=== PATIENT | female | born 1980 | race Two or more races ===

== ENCOUNTER 2017-12-02 09:33 | Emergency (ER) | payer MEDICAID, OTHER ==
[~2017-12-02] VITALS: Ht 157.5 cm; Wt 88.5 kg
[2017-12-02 10:03] LABS: Basophils # (auto) 0 uL; Basophils % (auto) 0.3 % (0.0-2.0); Eosinophils # (auto) 0.1 uL; Eosinophils % (auto) 1.8 % (0.0-7.0); Hematocrit 44.5 % (36.0-46.0); Hemoglobin 15.1 g/dL (12.2-16.2); Lymphocytes # (auto) 2.1 uL; Lymphocytes % (auto) 33.1 % (10.0-50.0); Mean Corpuscular Hemoglobin 30.5 pg (28.0-32.0); Mean Corpuscular Hgb Conc. 33.9 g/dL (32.0-36.0); Monocytes # (auto) 0.7 uL; Monocytes % (auto) 11.2 % (0.0-12.0); Neutrophils # (auto) 3.3 uL; Neutrophils % (auto) 53.6 % (37.0-80.0); Nucleated Red Blood Cells % 0.1 %; Platelet Count (auto) 253 10^3/uL (140-450); Red Blood Cells 4.95 10^6/uL (4.0-5.20); White Blood Cell 6.2 10^3/uL (4.4-10.8)
[2017-12-02 10:14] VITALS: BP 118/75
[2017-12-02] MEDS ORDERED: SODIUM CHLORIDE 0.9% 1,000 ML IV ONE ×2 (10:32)
[2017-12-02 10:42] LABS: Urine Bacteria FEW /hpf (None Seen); Urine Blood 2+ /uL (Negative); Urine Mucus FEW (None Seen); Urine Specific Gravity 1.025 (1.001-1.035); Urine WBC 2 /hpf (0 - 5)
[2017-12-02 10:43] LABS: Albumin 3.7 g/dL (3.4-5.0); BUN/Creatinine Ratio 12.7; Bilirubin, Total 0.5 mg/dL (0.2-1.0); Calcium 8.4 mg/dL (8.5-10.1); Potassium 3.6 mmol/L (3.5-5.1); Total Protein 8.1 g/dL (6.4-8.2)
[2017-12-02] MEDS ORDERED: ALUM & MAG HYDROX-SIMETH LIQ(MAALOX) 30 ML PO ONE (12:00)
[2017-12-02] MEDS ORDERED: LIDOCAINE VISCOUS 2% 15ML UD PO ONE (12:00)
[2017-12-02] MEDS ORDERED: DONNATAL 5ml ORAL Elix (BELLADONNA ALK-PHENOBARB) PO ONE (12:00)
== END 2017-12-02 16:50 | disposition home or self-care (01) ==
LOC: ER 09:33
DX: N39.0 Urinary tract infection, site not specified (principal); K29.70 Gastritis, unspecified, without bleeding
CPT/HCPCS: 36415; 80053; 81001; 85025; 94761; 96360

== ENCOUNTER 2019-04-22 12:20 | Emergency (ER) | payer SELFPAY ==
[~2019-04-22] VITALS: Ht 160 cm; Wt 86.6 kg
[~2019-04-22 12:20] MED LIST: LEVO500T21 PO; METR500T PO
[2019-04-22 12:46] LABS: Urine WBC None Seen /hpf (0 - 5)
[2019-04-22 13:27] LABS: Basophils # (auto) 0 uL; Basophils % (auto) 0.4 % (0.0-2.0); Eosinophils # (auto) 0.1 uL; Eosinophils % (auto) 1.5 % (0.0-7.0); Hematocrit 41.4 % (36.0-46.0); Lymphocytes # (auto) 2.8 uL; Lymphocytes % (auto) 38.4 % (10.0-50.0); Mean Corpuscular Hemoglobin 30.4 pg (28.0-32.0); Mean Corpuscular Hgb Conc. 33.7 g/dL (32.0-36.0); Monocytes # (auto) 0.6 uL; Neutrophils # (auto) 3.8 uL; Neutrophils % (auto) 51.7 % (37.0-80.0); Nucleated Red Blood Cells % 0.1 %; Platelet Count (auto) 244 10^3/uL (140-450); Red Cell Distribution Width 13.8 % (11.8-14.3); White Blood Cell 7.4 10^3/uL (4.4-10.8)
[2019-04-22 13:31] LABS: Urine Bacteria NONE SEEN /hpf (None Seen); Urine Blood TRACE /uL (Negative); Urine Specific Gravity 1.029 (1.001-1.035)
[2019-04-22 16:17] VITALS: BP 132/88
== END 2019-04-22 16:01 | disposition home or self-care (01) ==
LOC: ER 12:20
DX: R19.09 Other intra-abdominal and pelvic swelling, mass and lump (principal); Z90.49 Acquired absence of other specified parts of digestive tract
CPT/HCPCS: 36415; 76856; 81001; 84702; 85025

== ENCOUNTER 2019-10-29 16:30 | Observation (INO) | payer MEDICAID ==
[2019-10-29] MEDS ORDERED: PREN-153 OR (18:41)
== END 2019-10-29 18:03 | disposition home or self-care (01) | DRG 566 ==
LOC: LDRP 16:30
PROVIDERS: ADMIT Specialist; ATTEND Specialist
DX: O26.853 Spotting complicating pregnancy, third trimester (principal); O24.419 Gestational diabetes mellitus in pregnancy, unspecified control; Z3A.30 30 weeks gestation of pregnancy
CPT/HCPCS: 59025; 81002; 82948; 82962; G0378

== ENCOUNTER 2019-12-27 08:00 | Inpatient (IN) | payer MEDICAID ==
[~2019-12-27] VITALS: Ht 30.5 cm; Wt 0.5 kg
[2019-12-27] VITALS (16 sets, daily range): BP systolic 110–129; BP diastolic 57–73
[~2019-12-27 08:00] MED LIST changes: +PREN-153 OR
[2019-12-27 09:01] LABS: Basophils # (auto) 0 10 ^3/uL (0-0.2); Basophils % (auto) 0.2 % (0.0-2.0); Eosinophils # (auto) 0.1 10 ^3/uL (0-0.8); Eosinophils % (auto) 1.5 % (0.0-7.0); Hemoglobin 13.3 g/dL (12.2-16.2); Lymphocytes # (auto) 2.7 10 ^3/uL (0.4-5.4); Lymphocytes % (auto) 32.5 % (10.0-50.0); Mean Corpuscular Hemoglobin 32.3 pg (28.0-32.0); Mean Corpuscular Hgb Conc. 34.1 g/dL (32.0-36.0); Mean Corpuscular Volume 94.8 fL (80.0-100.0); Monocytes # (auto) 0.6 10 ^3/uL (0-1.3); Monocytes % (auto) 7.3 % (0.0-12.0); Neutrophils # (auto) 4.9 10 ^3/uL (1.6-8.6); Neutrophils % (auto) 58.5 % (37.0-80.0); Nucleated Red Blood Cells % 0.1 %; Platelet Count (auto) 231 10^3/uL (140-450); Red Blood Cells 4.11 10^6/uL (4.0-5.20); Red Cell Distribution Width 14.5 % (11.8-14.3); White Blood Cell 8.4 10^3/uL (4.4-10.8)
[2019-12-27 09:07] LABS: Urine Bacteria MANY /hpf (None Seen); Urine Blood 1+ /uL (Negative); Urine Mucus FEW (None Seen); Urine Specific Gravity 1.022 (1.001-1.035); Urine WBC 5 /hpf (0 - 5)
[2019-12-27 09:14] LABS: Albumin 2.6 g/dL (3.4-5.0); BUN/Creatinine Ratio 26.2; Calcium 8.1 mg/dL (8.5-10.1); Potassium 3.6 mmol/L (3.5-5.1)
[2019-12-27 09:17] LABS: Bilirubin, Total 0.3 mg/dL (0.2-1.0); INR 0.94 (0.9-1.15); Partial Thromboplastin Time 27.9 sec (23.64-32.05)
[2019-12-27] MEDS ORDERED: TETRACAINE 1% INJ 2 ML VIAL IJ ONE (11:48)
[2019-12-27] MEDS ORDERED: LACT. RINGERS/OXYTOCIN 20UNITS 1,000 ML IV SCH (12:03)
[2019-12-27] MEDS ORDERED: ceFAZolin 1GM VL ONE (12:06)
[2019-12-27] MEDS ORDERED: PHENYLEPHRINE HCL 10 MG/ML VL ONE (12:06)
[2019-12-27] MEDS ORDERED: ePHEDrine SULFATE 50 MG/ML AMP ONE (12:06)
[2019-12-27] MEDS ORDERED: MORPHINE SULF(PF) 0.5MG/ML 10ML VIAL ONE (12:06)
[2019-12-27] MEDS ORDERED: oxyTOCIN 10 UNIT/ML 10ML VIAL ONE (12:09)
[2019-12-27] MEDS ORDERED: ceFAZolin 1GM/50ML 50 ML IV SCH (12:15)
[2019-12-27] MEDS ORDERED: ONDANSETRON HCL 4 MG/2 ML VIAL IV PRN ×3 (12:15→13:45)
[2019-12-27] MEDS ORDERED: MORPHINE SULFATE 4 MG/ML SYR/VIAL IV PRN (12:15)
[2019-12-27] MEDS ORDERED: diphenhdrAMINE HCL 50 MG/1 ML VL IV PRN (13:45)
[2019-12-27] MEDS ORDERED: NALOXONE HCL 0.4 MG/ML VIAL IV PRN ×2 (13:45)
[2019-12-27] MEDS ORDERED: KETOROLAC TROMETH 30 MG/ML 1ML VIAL IV PRN (13:45)
[2019-12-27] MEDS ORDERED: ACCU-CHEK COMFORT CURVE STRIP VI ONE (13:45)
[2019-12-27] MEDS ORDERED: HYDROmorphone HCL 2 MG/ML VL IV PRN (13:45)
[2019-12-27 20:13] LABS: Basophils # (auto) 0 10 ^3/uL (0-0.2); Basophils % (auto) 0.3 % (0.0-2.0); Eosinophils # (auto) 0 10 ^3/uL (0-0.8); Eosinophils % (auto) 0.3 % (0.0-7.0); Hematocrit 38.3 % (36.0-46.0); Hemoglobin 12.9 g/dL (12.2-16.2); Lymphocytes % (auto) 9.3 % (10.0-50.0); Mean Corpuscular Hemoglobin 31.9 pg (28.0-32.0); Mean Corpuscular Hgb Conc. 33.6 g/dL (32.0-36.0); Mean Corpuscular Volume 94.8 fL (80.0-100.0); Monocytes # (auto) 0.7 10 ^3/uL (0-1.3); Monocytes % (auto) 6.8 % (0.0-12.0); Neutrophils # (auto) 8.5 10 ^3/uL (1.6-8.6); Neutrophils % (auto) 83.3 % (37.0-80.0); Platelet Count (auto) 215 10^3/uL (140-450); Red Blood Cells 4.04 10^6/uL (4.0-5.20); Red Cell Distribution Width 14.2 % (11.8-14.3); White Blood Cell 10.2 10^3/uL (4.4-10.8)
[2019-12-27] MEDS: LACTATED RINGER'S 1,000 ML IV SCH (20:25)
[2019-12-27] MEDS: ceFAZolin 1GM/50ML 50 ML IV SCH (20:26)
[2019-12-27] MEDS ORDERED: MORPHINE SULF INJ 2 MG/ML SYRINGE 1ML IV PRN (21:30)
[2019-12-28] VITALS (9 sets, daily range): BP systolic 98–127; BP diastolic 63–81
[2019-12-28] MEDS ORDERED: ACETAMINOPHEN IV 100 ML IV ONE (01:27)
[2019-12-28] MEDS: ceFAZolin 1GM/50ML 50 ML IV SCH ×2 (05:15→12:33)
[2019-12-28] MEDS: LACTATED RINGER'S 1,000 ML IV SCH ×2 (05:30→09:55)
[2019-12-28 07:09] LABS: Basophils # (auto) 0 10 ^3/uL (0-0.2); Eosinophils # (auto) 0.1 10 ^3/uL (0-0.8); Eosinophils % (auto) 1.2 % (0.0-7.0); Hematocrit 36.2 % (36.0-46.0); Hemoglobin 12.3 g/dL (12.2-16.2); Lymphocytes # (auto) 0.8 10 ^3/uL (0.4-5.4); Lymphocytes % (auto) 8.3 % (10.0-50.0); Mean Corpuscular Hemoglobin 32.3 pg (28.0-32.0); Mean Corpuscular Hgb Conc. 34.1 g/dL (32.0-36.0); Mean Corpuscular Volume 94.9 fL (80.0-100.0); Monocytes # (auto) 0.7 10 ^3/uL (0-1.3); Monocytes % (auto) 6.8 % (0.0-12.0); Neutrophils # (auto) 8.5 10 ^3/uL (1.6-8.6); Neutrophils % (auto) 83.7 % (37.0-80.0); Platelet Count (auto) 216 10^3/uL (140-450); Red Blood Cells 3.82 10^6/uL (4.0-5.20); Red Cell Distribution Width 14.5 % (11.8-14.3); White Blood Cell 10.2 10^3/uL (4.4-10.8)
[2019-12-28] MEDS ORDERED: HYDROcodone-ACET 5/325MG TAB PO PRN (09:00)
[2019-12-28] MEDS ORDERED: BISACODYL 10 MG RECT SUPP PR PRN (09:00)
[2019-12-28] MEDS: DOCUSATE CALCIUM 240 MG CAP PO SCH (10:58)
[2019-12-28] MEDS: DOCUSATE SOD 100 MG CAP PO SCH ×2 (10:58→22:28)
[2019-12-28] MEDS: HYDROcodone-ACET 5/325MG TAB PO PRN ×3 (11:01→20:59)
[2019-12-28] MEDS: SIMETHICONE 80 MG CHEWABLE TABLET PO SCH ×4 (12:00→22:28)
[2019-12-28] MEDS: IBUPROFEN 800 MG TAB PO PRN ×2 (13:55→22:28)
[2019-12-28] MEDS ORDERED: ACETAMINOPHEN IV 1000 MG/100ML (10MG/ML) IV PRN (21:15)
[2019-12-29] MEDS: HYDROcodone-ACET 5/325MG TAB PO PRN ×5 (03:13→21:13)
[2019-12-29 03:27] VITALS: BP 109/70
[2019-12-29] MEDS: SIMETHICONE 80 MG CHEWABLE TABLET PO SCH ×4 (05:32→21:16)
[2019-12-29] MEDS: IBUPROFEN 800 MG TAB PO PRN ×2 (06:37→18:46)
[2019-12-29 06:49] VITALS: BP 116/75
[2019-12-29] MEDS: DOCUSATE SOD 100 MG CAP PO SCH ×2 (08:24→21:16)
[2019-12-29] MEDS: DOCUSATE CALCIUM 240 MG CAP PO SCH (08:24)
[2019-12-29 11:20] VITALS: BP 128/74
[2019-12-29 15:13] VITALS: BP 119/74
[2019-12-29 18:45] VITALS: BP 119/73
[2019-12-29 23:00] VITALS: BP 114/79
[2019-12-30] MEDS: HYDROcodone-ACET 5/325MG TAB PO PRN ×2 (01:33→07:24)
[2019-12-30 03:00] VITALS: BP 118/66
[2019-12-30] MEDS: IBUPROFEN 800 MG TAB PO PRN (05:26)
[2019-12-30] MEDS: SIMETHICONE 80 MG CHEWABLE TABLET PO SCH (06:00)
[2019-12-30 06:55] VITALS: BP 115/68
[2019-12-30] MEDS: DOCUSATE CALCIUM 240 MG CAP PO SCH (09:55)
[2019-12-30] MEDS: DOCUSATE SOD 100 MG CAP PO SCH (09:55)
== END 2019-12-30 10:14 | disposition home or self-care (01) | DRG 540 ==
LOC: OBSVTOIN 08:00 → LDRP 08:00
PROVIDERS: ADMIT Obstetrics & Gynecology; ATTEND Obstetrics & Gynecology
PROC: 10D00Z1 Extraction of Products of Conception, Low, Open Approach (ICD-10-PCS; principal; 2019-12-27 12:02)
DX: O34.211 Maternal care for low transverse scar from previous cesarean delivery (principal); Z37.0 Single live birth; Z3A.39 39 weeks gestation of pregnancy
CPT/HCPCS: 36415; 51702; 59025; 80053; 81001; 82962; 84112; 85025; 85610; 85730; 86592; 86850; 86900; 86901; 94760; 96365; 96366; 96375; G0378; J0131; J0690; J2590

== ENCOUNTER 2020-08-07 15:53 | Inpatient (IN) | payer MEDICAID, OTHER ==
[~2020-08-07] VITALS: Ht 157.5 cm; Wt 95.3 kg
[2020-08-07] MEDS ORDERED: AZITHROMYCIN 500MG/ 250ML 250 ML IV ONE (16:45)
[2020-08-07] MEDS ORDERED: methylPREDNISolone SOD SUCC 125 MG/2 ML VL IV ONE (16:45)
[2020-08-07 21:13] LABS: Basophils # (auto) 0 10 ^3/uL (0-0.2); Basophils % (auto) 0.2 % (0.0-2.0); Eosinophils # (auto) 0 10 ^3/uL (0-0.8); Hematocrit 37.1 % (36.0-46.0); Hemoglobin 13.1 g/dL (12.2-16.2); Lymphocytes # (auto) 1.1 10 ^3/uL (0.4-5.4); Lymphocytes % (auto) 14.2 % (10.0-50.0); Mean Corpuscular Hemoglobin 32.6 pg (28.0-32.0); Mean Corpuscular Hgb Conc. 35.3 g/dL (32.0-36.0); Mean Corpuscular Volume 92.3 fL (80.0-100.0); Monocytes # (auto) 0.4 10 ^3/uL (0-1.3); Monocytes % (auto) 4.5 % (0.0-12.0); Neutrophils # (auto) 6.3 10 ^3/uL (1.6-8.6); Neutrophils % (auto) 81.1 % (37.0-80.0); Nucleated Red Blood Cells % 0.1 %; Platelet Count (auto) 271 10^3/uL (140-450); Red Blood Cells 4.02 10^6/uL (4.0-5.20); Red Cell Distribution Width 16.1 % (11.8-14.3); White Blood Cell 7.7 10^3/uL (4.4-10.8)
[2020-08-07 21:32] LABS: Albumin 3.5 g/dL (3.4-5.0); Anion Gap 5 (5-15); Blood Urea Nitrogen 6 mg/dL (7-18); Calcium 8.6 mg/dL (8.5-10.1); Carbon Dioxide 29 mmol/L (21-32); Chloride 97 mmol/L (98-107); Glucose 96 mg/dL (74-106); Potassium 3.3 mmol/L (3.5-5.1); Sodium 131 mmol/L (136-145)
[2020-08-07 21:41] LABS: Alanine Aminotransferase 39 U/L (13-56); Alkaline Phosphatase 105 U/L (45-117); Aspartate Aminotransferase 43 U/L (15-37); BUN/Creatinine Ratio 7.9; Bilirubin, Total 0.6 mg/dL (0.2-1.0); GFR African American 110 mL/min; GFR Non-African American 91 mL/min; Total Protein 9.2 g/dL (6.4-8.2)
[2020-08-07 21:42] LABS: CRP High Sensitivity > 19 mg/dL (< 0.3)
[2020-08-07] MEDS ORDERED: ACETAMINOPHEN 325 MG TAB PO ONE (21:45)
[2020-08-07] MEDS ORDERED: MORPHINE SULF INJ 2 MG/ML SYRINGE 1ML IV PRN (23:15)
[2020-08-07] MEDS ORDERED: NITROGLYCERIN 0.4 MG SL TAB SL PRN (23:15)
[2020-08-08] MEDS: ALBUTEROL SULF HFA 90MCG INH 200DOSE IN SCH ×3 (06:00→22:00)
[2020-08-08 07:53] LABS: Basophils # (auto) 0 10 ^3/uL (0-0.2); Basophils % (auto) 0.1 % (0.0-2.0); Eosinophils # (auto) 0 10 ^3/uL (0-0.8); Hematocrit 35.9 % (36.0-46.0); Hemoglobin 12.3 g/dL (12.2-16.2); Lymphocytes # (auto) 0.8 10 ^3/uL (0.4-5.4); Lymphocytes % (auto) 11.6 % (10.0-50.0); Mean Corpuscular Hemoglobin 31.6 pg (28.0-32.0); Mean Corpuscular Hgb Conc. 34.1 g/dL (32.0-36.0); Mean Corpuscular Volume 92.6 fL (80.0-100.0); Monocytes # (auto) 0.2 10 ^3/uL (0-1.3); Neutrophils # (auto) 5.7 10 ^3/uL (1.6-8.6); Neutrophils % (auto) 85.3 % (37.0-80.0); Platelet Count (auto) 280 10^3/uL (140-450); Red Blood Cells 3.88 10^6/uL (4.0-5.20); Red Cell Distribution Width 16.2 % (11.8-14.3); White Blood Cell 6.6 10^3/uL (4.4-10.8)
[2020-08-08 08:14] LABS: Potassium 3.5 mmol/L (3.5-5.1)
[2020-08-08] MEDS ORDERED: IOHEXOL 350 MG/ML 100ML IJ ONE (08:16)
[2020-08-08 08:24] LABS: Albumin 3.1 g/dL (3.4-5.0); BUN/Creatinine Ratio 12.7; Bilirubin, Total 0.5 mg/dL (0.2-1.0); Calcium 8.7 mg/dL (8.5-10.1); Total Protein 8.5 g/dL (6.4-8.2)
[2020-08-08] MEDS: CHOLECALCIFEROL (VITD3) 2,000 UNIT CAP PO SCH (10:56)
[2020-08-08] MEDS: cefTRIAXone 1GM/50ML D5W 50 ML IV SCH (10:56)
[2020-08-08] MEDS: POTASSIUM CHL 20 Meq TABLET PO SCH (10:56)
[2020-08-08] MEDS: ASCORBIC ACID 500 MG TAB PO SCH ×2 (10:56→22:51)
[2020-08-08] MEDS: DexAMETHasone SOD PHOS 10MG/1ML VIAL INJ IV SCH (10:56)
[2020-08-08] MEDS: ZINC SULFATE 220mg CAP or TAB PO SCH (10:56)
[2020-08-08] MEDS: AZITHROMYCIN 500MG/ 250ML 250 ML IV SCH (10:56)
[2020-08-08] MEDS: ENOXAPARIN SOD 40 MG/0.4 ML SYRINGE SC SCH (10:57)
[2020-08-09] MEDS: ALBUTEROL SULF HFA 90MCG INH 200DOSE IN SCH ×3 (06:00→22:00)
--- NOTE | 2020-08-09 07:10 | NUR ---
Respiratory note: MEDICATION NOT AT BEDSIDE. HR 71, RR 16, POX 95%, BS CLR/DIM. NO DISTRESS NOTED.
[2020-08-09] MEDS: ENOXAPARIN SOD 40 MG/0.4 ML SYRINGE SC SCH (09:47)
[2020-08-09] MEDS: CHOLECALCIFEROL (VITD3) 2,000 UNIT CAP PO SCH (09:47)
[2020-08-09] MEDS: DexAMETHasone SOD PHOS 10MG/1ML VIAL INJ IV SCH (09:47)
[2020-08-09] MEDS: ASCORBIC ACID 500 MG TAB PO SCH ×2 (09:47→22:00)
[2020-08-09] MEDS: POTASSIUM CHL 20 Meq TABLET PO SCH (09:47)
[2020-08-09] MEDS: cefTRIAXone 1GM/50ML D5W 50 ML IV SCH (09:47)
[2020-08-09] MEDS: ZINC SULFATE 220mg CAP or TAB PO SCH (09:47)
[2020-08-09] MEDS: AZITHROMYCIN 500MG/ 250ML 250 ML IV SCH (09:47)
--- NOTE | 2020-08-09 14:55 | NUR ---
Regarding social service consult for home oxygen. Faxed clinical information to [facility]. Marlo Gonzalez with [facility] order has been received and oxygen portable will be deliver between 15:00-16:30. Concentrate oxygen will be deliver to patient home.
--- NOTE | 2020-08-09 14:57 | NUR ---
obtain authorization from [facility] [id number] for [facility].
[2020-08-10 03:41] VITALS: BP 109/71
== END 2020-08-10 04:02 | disposition home or self-care (01) | DRG 137 ==
LOC: ER 15:53 → EDBD 15:53 → TELE 15:54 → EDUNIT# 15:54 → TELE 08-10 01:37
PROVIDERS: ADMIT Hospitalist; ATTEND Hospitalist
DX: U07.1 COVID-19 (principal); J96.01 Acute respiratory failure with hypoxia; J12.89 Other viral pneumonia; J98.11 Atelectasis; E66.01 Morbid (severe) obesity due to excess calories; E87.1 Hypo-osmolality and hyponatremia; E88.09 Other disorders of plasma-protein metabolism, not elsewhere classified; Z71.3 Dietary counseling and surveillance
CPT/HCPCS: 36415; 71045; 71275; 80053; 82728; 84484; 85025; 85379; 86141; 87426; G0378; J0696; J1100

== ENCOUNTER 2023-01-23 08:36 | Emergency (ER) | payer MEDICAID ==
[~2023-01-23] VITALS: Ht 157.5 cm; Wt 116.0 kg
[~2023-01-23 08:36] MED LIST changes: -LEVO500T21 PO; +LEVO500T31 PO; -PREN-153 OR; +PREN1TAB71 OR
[2023-01-23 09:13] VITALS: BP 161/110
[2023-01-23] MEDS ORDERED: cefTRIAXone SOD 1,000 MG VL IM ONE ×2 (09:30)
[2023-01-23] MEDS ORDERED: AMOX875T3 PO (09:41)
[2023-01-23] MEDS ORDERED: IBUP-1456 PO (09:41)
== END 2023-01-23 09:50 | disposition home or self-care (01) ==
LOC: ER 08:36
DX: J03.90 Acute tonsillitis, unspecified (principal); H66.93 Otitis media, unspecified, bilateral; Z88.1 Allergy status to other antibiotic agents; Z88.6 Allergy status to analgesic agent
CPT/HCPCS: 96372; 99283; J0696